=== PATIENT | female | born 1985 | race Hispanic/Latino ===

== ENCOUNTER 2017-06-25 22:08 | Emergency (ER) | payer SELFPAY ==
[2017-06-25 22:33] VITALS: BP 131/91
[2017-06-25 23:34] LABS: Bilirubin,Urine NEG (Negative); Blood,Urine SM (Negative); Color,Urine Yellow (Yellow); Mucus,Urine 2+ /HPF; Protein,Urine <15 mg/dL mg/dL (Negative)
== END 2017-06-25 22:38 | disposition left against medical advice (07) ==
LOC: ED 22:08
DX: R11.10 Vomiting, unspecified (principal); Z53.21 Procedure and treatment not carried out due to patient leaving prior to being seen by health care provider
CPT/HCPCS: 81001